=== PATIENT | male | born 1950 | race Caucasian/White ===

== ENCOUNTER 2016-12-13 09:56 | Emergency (ER) | payer MEDICARE, OTHER | END 2016-12-13 12:35 | disposition home or self-care (01) | LOC: ER1 09:56 | DX: R33.9 Retention of urine, unspecified (principal); I10 Essential (primary) hypertension; E11.9 Type 2 diabetes mellitus without complications; Z79.899 Other long term (current) drug therapy | CPT/HCPCS: 51702; 81001; 87086; 99283 ==

== ENCOUNTER 2021-06-27 15:38 | Emergency (ER) | payer OTHER ==
[2021-06-27 18:06] LABS: HEMOGLOBIN 14.5 gm/dl (14.0-17.5); RED BLOOD COUNT 4.78 M/UL (4.20-5.50); WHITE BLOOD COUNT 8.9 K/UL (4.5-11.0)
[2021-06-27 18:38] LABS: BUN/CREATININE RATIO 20 (0-10)
== END 2021-06-27 19:21 | disposition home or self-care (01) ==
LOC: ER1 15:38
PROVIDERS: Emergency Medicine
DX: N43.3 Hydrocele, unspecified (principal)
CPT/HCPCS: 76870; 80053; 81001; 83605; 83690; 85025; 87077; 87086; 87186; 99284